=== PATIENT | female | born 1985 ===

== ENCOUNTER 2017-11-23 11:15 | Observation (INO) | payer OTHER ==
--- NOTE | 2017-11-23 07:29 | PDGENHP ---
History and Physical History and Physical: Assessment and Plan: 1. Preop examination - CBC with Auto Differential; Future 2. Endometriosis, pelvic peritoneum Mara appears to have recurrent endometriosis which greatly interferes with the qualitiy of her life. We reviewed all conservagive and surgical options. At the end of our discussion she wishes to proceed with a robotic hysterectomy, possible BSO, excision of endometriosis and cysto. 3. Dysmenorrhea Subjective: Patient ID: Mara Sotelo is a 32 y.o. female who presents to [facility] for endometriosis. HPI Mara underwent excision of endometriosis several years ago. 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 She has tried IVF x 2 without success. She is tired of the pain and difficulty functioning. She wishes to discuss possible hysterectomy and excision of endometriosis. PastMedicalHistory Past Medical History: Diagnosis Date Arrhythmia Biliary dyskinesia Dysmenorrhea Endometriosis Syncope and collapse PastSurgicalHistory Past Surgical History: Procedure Laterality Date cholecystectomy laparoscopy of uterus PARTIAL HYMENECTOMY CURRENT MEDICATIONS: Current Outpatient Medications Medication Sig HYDROcodone-acetaminophen (NORCO) 5-325 mg Take 1-2 tablets by mouth every 4 hours as needed. This med has acetaminophen (APAP). meloxicam (MOBIC) 7.5 mg tablet TK 1 T PO PRF MIGRAINE. DO NOT TAKE THIS IF YOU BECOME No current facility-administered medications for this visit. ALLERGIES: Compazine [prochlorperazine edisylate] I have reviewed, verified and agree with the past medical, surgical, , family, social and ROS history as documented by the RN today. Objective: Vital Signs: Visit Vitals BP 112/82 Pulse 71 Temp 36.6 C (97.9 F) (Temporal) Resp 14 Ht 1.575 m (5' 2") Wt 66.3 kg (146 lb 3.2 oz) SpO2 99% BMI 26.74 kg/m Physical Exam Gen: This is an alert, well developed woman in no distress. Neuro: She moves all extremities. Psych: She is appropriate, oriented, with normal affect. Neck: No thyroid enlargement, adenopathy, or tenderness. Lungs: Clear to ascultation, no wheezes or rales. Heart: Regular rate and rhythm without obvious murmurs. Abdomen: Soft, non-tender, without guarding, rebound, or masses. Extremities: No edema or cyanosis. Pelvic: Normal external genitalia. Non-gaping introitus, vagina without discharge, adequately estrogenized, no significant prolapse. Cervix without lesions or discharge. Uterus normal sized, reduced mobility, tender. Adnexa tender without enlargement. She is tender surrounding the cervix and posterior cul-de-sac. DATA: I have reviewed the pertinent medical records. TIME/COMMUNICATION: I personally spent a total of 40 minutes. Of that 30 minutes was counseling/ coordination of patient's care. See my note above for details. Papito Bowers MD Board Certified Female Pelvic Medicine and Reconstructive Surgery Director of Minimally Invasive Gynecologic Surgery, [facility] Surgeon in Minimally Invasive Gynecologic Surgery [facility] Surgeon in Robotic Surgery
[2017-11-23] MEDS ORDERED: ceFAZolin 2 GM/DEXTROSE 100 ML IV ONE (11:37)
[2017-11-23] MEDS ORDERED: PHENAZOPYRIDINE HCL 200 MG TAB PO ONE (11:37)
[2017-11-23] MEDS ORDERED: ACETAMINOPHEN 500 MG TAB PO ONE (11:37)
[2017-11-23] MEDS ORDERED: LIDOCAINE 1% 2 ML INJ ID PRN (11:38)
[2017-11-23] MEDS ORDERED: LR 1,000 ML IV ONE (11:38)
[2017-11-23] MEDS ORDERED: GABAPENTIN 300 MG CAP PO ONE (11:45)
--- NOTE | 2017-11-23 12:28 | PDHPUP ---
History & Physical Update H&P update statement: This history and physical update is based on an assessment of the patient which was completed after admission or registration (within 24 hours), but prior to the surgery/procedure. H&P update: H&P reviewed & patient examined, no change in patient's condition since H&P completed
[2017-11-23] MEDS ORDERED: BUPIVACAINE/EPI 0.5% 30 ML SDV ONE (12:42)
[2017-11-23] MEDS ORDERED: MIDAZOLAM 2 MG/2 ML VIAL IVP ONE (12:44)
[2017-11-23] MEDS ORDERED: PROPOFOL/EMULSION 500 MG/50 ML BOTTLE IV ONE ×3 (12:46→14:02)
[2017-11-23] MEDS ORDERED: fentaNYL 250 MCG/5 ML INJ ONE (12:46)
[2017-11-23] MEDS ORDERED: LIDOCAINE 2% 100 MG/5 ML SYR ONE (12:47)
[2017-11-23] MEDS ORDERED: DEXAMETHASONE 4 MG/ML VIAL ONE ×2 (12:47)
[2017-11-23] MEDS ORDERED: ROCURONIUM 50 MG/5 ML VIAL ONE ×2 (12:47→13:30)
[2017-11-23] MEDS ORDERED: RANITIDINE 50 MG/2 ML VIAL ONE (12:47)
[2017-11-23] MEDS ORDERED: ONDANSETRON 4 MG/2 ML VIAL ONE (12:47)
[2017-11-23] MEDS ORDERED: METOCLOPRAMIDE 10 MG/2 ML VIAL ONE (12:47)
[2017-11-23] MEDS ORDERED: KETOROLAC 30 MG/1 ML SDV ONE (12:47)
[2017-11-23] MEDS ORDERED: MIDAZOLAM 2 MG/2 ML VIAL ONE (12:51)
--- NOTE | 2017-11-23 13:25 | PDANEPAE ---
ANE Past Medical History - Cardiovascular History Hx Hypertension: No Hx Arrhythmias: No Hx Chest Pain: No Hx Coronary Artery / Peripheral Vascular Disease: No Hx CHF / Valvular Disease: No Hx Palpitations: No Cardiovascular History Comment: PALPITATIONS DURING IVF WHILE ON ESTROGEN IN 2018 - Pulmonary History Hx COPD: No Hx Asthma/Reactive Airway Disease: No Hx Recent Upper Respiratory Infection: No Hx Oxygen in Use at Home: No Hx Sleep Apnea: No Sleep Apnea Screening Result - Last Documented: Negative - Neurologic History Hx Cerebrovascular Accident: No Hx Seizures: No Hx Dementia: No - Endocrine History Hx Diabetes: No - Renal History Hx Renal Disorders: No - Liver History Hx Hepatic Disorders: No - Neurological & Psychiatric Hx Hx Neurological and Psychiatric Disorders: No - Cancer History Hx Cancer: No - Congenital Disorder History Hx Congenital Disorders: No - GI History Hx Gastrointestinal Disorders: No - Other Health History Other Health History: NA - Chronic Pain History Chronic Pain: No - Surgical History Prior Surgeries: LAP RAMÍREZ 2013. ENDOMETRIAL EXC 2013. DIAGNOSTIC LAPAROSCOPY 2007. HYMENECTOMY 1993 ANE Review of Systems Review of Systems: - Exercise capacity METS (RN): 5 METS ANE Patient History - Allergies Allergies/Adverse Reactions: prochlorperazine [From Compazine] Allergy (Verified 11/04/17 13:38) Other-Enter Comments - Home Medications Home Medications: Ascorbic Acid [Vitamin C 500 mg (*)] 500 mg PO DAILY 11/04/17 [Last Taken ] Herbals/Supplements -Info Only 1 ea PO DAILY 11/04/17 [Last Taken 11/16/17] Meloxicam 15 mg PO DAILY PRN 11/04/17 [Last Taken 2 Weeks Ago ~11/09/17] Hydrocodone/Acetaminophen [Donner 5/325 (*)] 1 - 2 tab PO Q4-6PRN PRN 11/09/17 [ Last Taken 11/21/17] - NPO status NPO Since - Liquids (Date): 11/23/17 NPO Since - Liquids (Time): 08:30 NPO Since - Solids (Date): 11/22/17 NPO Since - Solids (Time): 20:30 - Smoking Hx Smoking Status: Never smoked - Family Anes Hx Family Hx Anesthesia Complications: na ANE Labs/Vital Signs - Vital Signs Blood Pressure: 134/97 Heart Rate: 84 Respiratory Rate: 18 O2 Sat (%): 97 Height: 157.48 cm Weight: 65.771 kg ANE Physical Exam - Airway Neck exam: FROM Mallampati Score: Class 1 Mouth exam: normal dental/mouth exam - Pulmonary Pulmonary: no respiratory distress - Cardiovascular Cardiovascular: regular rate and rhythym - ASA Status ASA Status: II ANE Anesthesia Plan Anesthesia Plan: general endotracheal anesthesia Total IV Anesthesia: Yes
[2017-11-23] MEDS ORDERED: fentaNYL 100 MCG/2 ML INJ ONE (13:30)
[2017-11-23] MEDS ORDERED: HYDROmorphONE/DILAUDID 2 MG/ML INJ ONE ×2 (13:50→15:39)
[2017-11-23] MEDS ORDERED: MEPERIDINE 25 MG/0.5 ML AMP IVP PRN (14:01)
[2017-11-23] MEDS ORDERED: fentaNYL 100 MCG/2 ML INJ IVP PRN (14:01)
[2017-11-23] MEDS ORDERED: HYDROmorphONE/DILAUDID 2 MG/ML INJ IVP PRN (14:01)
[2017-11-23] MEDS ORDERED: ONDANSETRON 4 MG/2 ML VIAL IVP PRN ×2 (14:01→16:19)
[2017-11-23] MEDS ORDERED: ALBUTEROL 3 ML DEYVIAL IH PRN (14:01)
[2017-11-23] MEDS ORDERED: NALOXONE HCL 0.4 MG/ML INJ IVP PRN ×2 (14:01→15:13)
[2017-11-23] MEDS ORDERED: SUGAMMADEX SODIUM 200 MG/2 ML VIAL IVP ONE (14:41)
--- NOTE | 2017-11-23 15:13 | POSTANESTH ---
Post Anesthetic Evaluation Cardiovascular Status: Similar to Pre-Op Cond Respiratory Status: Similar to Pre-op Cond. Level of Consciousness/Mental Status: Mildly Sleepy, Arousable Pain Control: Adequate, Prn Tx Ordered Nausea/Vomiting Control: Adequate, Prn Tx Ordered Complications Possibly Related to Anesthesia: None Noted
[2017-11-23] MEDS ORDERED: HYDROmorphONE/DILAUDID 1 MG/ML INJ IVP PRN (16:19)
[2017-11-23] MEDS ORDERED: ONDANSETRON DISINTEGRATING 4 MG TAB PO PRN (16:19)
--- NOTE | 2017-11-23 16:22 | POSTOPPROG ---
Post Op Note Date of Operation: 11/23/17 Surgeon: Papito Bowers Tree Farmer: Liset Oconnell Anesthesiologist: Clara Anesthesia: GET(General Endotracheal) Pre-op Diagnosis: Endometriosis Post-op Diagnosis: Same Procedure: Robotic hyst/BSO, excise endo, bilat ureterolysis Findings: Endo Inf/Abcess present in the surg proc area at time of surgery?: No EBL: Minimal Complications: None Specimen(s): Uterus, tubes, and ovaries
[2017-11-23] MEDS ORDERED: LR 1,000 ML IV SCH (16:30)
[2017-11-23] MEDS: KETOROLAC 30 MG/1 ML SDV IVP SCH (18:25)
[2017-11-23] MEDS: HYDROCODONE/APAP 5/325 TAB PO PRN ×2 (19:56→21:33)
[2017-11-23] MEDS: SIMETHICONE 80 MG TAB CHEW PO SCH ×2 (19:57→23:46)
[2017-11-23] MEDS: DOCUSATE SODIUM 100 MG CAP PO SCH (23:46)
[2017-11-24] MEDS: KETOROLAC 30 MG/1 ML SDV IVP SCH ×2 (00:25→06:10)
[2017-11-24 04:46] LABS: PLATELET COUNT 293 10^3/uL (150-400)
[2017-11-24 08:02] VITALS: BP 103/68
[2017-11-24] MEDS: SIMETHICONE 80 MG TAB CHEW PO SCH (10:06)
[2017-11-24] MEDS: DOCUSATE SODIUM 100 MG CAP PO SCH (10:06)
[2017-11-24] MEDS: HYDROCODONE/APAP 5/325 TAB PO PRN (10:11)
== END 2017-11-24 12:01 | disposition home or self-care (01) ==
LOC: F3E 11:15 → FOB 16:41
PROVIDERS: ADMIT Obstetrics & Gynecology; ATTEND Obstetrics & Gynecology
DX: N80.3 Endometriosis of pelvic peritoneum (principal); N94.6 Dysmenorrhea, unspecified
CPT/HCPCS: 58571; G0378; J0690; J1100; J1170; J1885; J2001; J2250; J2270; J2405; J2704; J2765; J2780; J3010